=== PATIENT | female | born 1995 | race American Indian/Alaskan Native ===

== ENCOUNTER 2016-06-29 17:31 | Emergency (ER) | payer MEDICAID ==
[2016-06-29 17:59] VITALS: BP 119/72; PULSE 82; RESP 20; TEMP 98.2; O2SAT 100
--- NOTE | 2016-06-29 18:24 | C.PDOC ---
History Of Present Illness 21 y/o female presents to ED with complaint of missing her menstrual period for 5 months. Patient notes she has taken multiple tests at home which were negative. Patient requests test. Denies any pain or symptoms of . Denies abdominal pain, nausea, vomiting, pelvic pain, vaginal bleeding, or other associated symptoms. Patient notes she has been unable to see her OB[facility] due to insurance issues. Time Seen by Provider: 06/29/16 18:05 Chief Complaint (Nursing): Female Genitourinary History Per: Patient History/Exam Limitations: no limitations Onset/Duration Of Symptoms: Days, Persistent Current Symptoms Are (Timing): Still Present Recent travel outside of the [place]: No Past Medical History Reviewed: Historical Data, Nursing Documentation, Vital Signs Vital Signs: Last Vital Signs Temp 98.2 F 06/29/16 17:53 Pulse 82 06/29/16 17:53 Resp 20 06/29/16 17:53 BP 119/72 06/29/16 17:53 Pulse Ox 100 06/29/16 18:34 - Medical History PMH: Asthma Comment Only: End Stage Renal Disease ("I HAD KIDNEY FAILURE LAST MONTH") Family History: States: Unknown Family Hx - Social History Hx Tobacco Use: Yes Hx Alcohol Use: No Hx Substance Use: No - Immunization History Hx Tetanus Toxoid Vaccination: No Hx Influenza Vaccination: No Hx Pneumococcal Vaccination: No Review Of Systems Except As Marked, All Systems Reviewed And Found Negative. Constitutional: Negative for: Fever, Chills Cardiovascular: Negative for: Chest Pain Respiratory: Negative for: Shortness of Breath Gastrointestinal: Negative for: Nausea, Vomiting, Abdominal Pain Genitourinary: Negative for: Dysuria, Hematuria, Vaginal Bleeding, Pelvic Pain Skin: Negative for: Rash Physical Exam - Physical Exam Appears: Non-toxic, No Acute Distress Skin: Normal Color, Warm, Dry Head: Atraumatic, Normacephalic Oral Mucosa: Moist Chest: Symmetrical Cardiovascular: Rhythm Regular Respiratory: Normal Breath Sounds, No Rales, No Rhonchi, No Wheezing Gastrointestinal/Abdominal: Soft, No Tenderness, No Distention, No Guarding, No Rebound Back: Normal Inspection, No CVA Tenderness Extremity: Normal ROM, Capillary Refill (< 2 sec. ) Neurological/Psych: Oriented x3, Normal Speech, Normal Cognition ED Course And Treatment O2 Sat by Pulse Oximetry: 100 Medical Decision Making Medical Decision Making: Patient with irregular menses for 5 months. test in ED was negative. Explain to patient negative results. Patient has no complaints at this time. Explain to patient she needs to follow up with primary doctor or environmental studies program director for further evaluation such as thyroid tests and other analysis. Disposition - Disposition Referrals: [facility] [Outside] [facility] [Outside] Disposition: HOME/ ROUTINE Disposition Time: 18:24 Condition: STABLE Additional Instructions: Please follow up with your environmental studies program director or clinic for further evaluation Instructions: Amenorrhea (GEN) - Clinical Impression Clinical Impression: examination or test, negative result, Irregular menstrual cycle - PA / IT TECHNICIAN / Resident Statement MD/DO has reviewed & agrees with the documentation as recorded. - Scribe Statement The provider has reviewed the documentation as recorded by the Saskiaibe Roberto Carlos Lopes Provider Scribe Attestation: All medical record entries made by the Scribe were at my direction and personally dictated by me. I have reviewed the chart and agree that the record accurately reflects my personal performance of the history, physical exam, medical decision making, and the department course for this patient. I have also personally directed, reviewed, and agree with the discharge instructions and disposition.
== END 2016-06-29 18:38 | disposition home or self-care (01) ==
LOC: C.ER 17:31
DX: N92.6 Irregular menstruation, unspecified (principal); Z32.02 Encounter for pregnancy test, result negative

== ENCOUNTER 2016-12-27 04:54 | Emergency (ER) | payer MEDICAID, OTHER ==
[2016-12-27 05:05] VITALS: O2SAT 98
--- NOTE | 2016-12-27 05:16 | C.PDOC ---
History Of Present Illness Patient presents to the ER with a complaint of abdominal pain for the past hour and a half that woke her up. Patient states she took ibuprofen that worsened the pain. Denies fever, chills, nausea, or vomiting. LMP was 11/21. Time Seen by Provider: 12/27/16 05:16 Chief Complaint (Nursing): Abdominal Pain History Per: Patient History/Exam Limitations: no limitations Onset/Duration Of Symptoms: Hrs Current Symptoms Are (Timing): Still Present Location Of Pain/Discomfort: Diffuse Radiation Of Pain To:: None Quality Of Discomfort: Unable To Describe Associated Symptoms: denies: Fever, Chills, Nausea, Vomiting Exacerbating Factors: None Alleviating Factors: None Recent travel outside of the [place]: No Abnormal Vaginal Bleeding: No Last Menstral Period: 11/21/16 Past Medical History Reviewed: Historical Data, Nursing Documentation, Vital Signs Vital Signs: Last Vital Signs Temp 97.6 F 12/27/16 05:01 Pulse 78 12/27/16 05:01 Resp 20 12/27/16 05:01 BP 114/76 12/27/16 05:01 Pulse Ox 98 12/27/16 05:40 - Medical History PMH: Asthma Comment Only: End Stage Renal Disease ("I HAD KIDNEY FAILURE LAST MONTH") Surgical History: No Surg Hx Family History: States: Unknown Family Hx - Social History Hx Tobacco Use: Yes Hx Alcohol Use: No Hx Substance Use: No - Immunization History Hx Tetanus Toxoid Vaccination: No Hx Influenza Vaccination: No Hx Pneumococcal Vaccination: No Review Of Systems Constitutional: Negative for: Fever, Chills Gastrointestinal: Positive for: Abdominal Pain. Negative for: Nausea, Vomiting Physical Exam - Physical Exam Appears: Non-toxic Skin: Warm, Dry Head: Normacephalic Oral Mucosa: Moist Chest: Symmetrical Cardiovascular: Rhythm Regular Respiratory: No Rales, No Rhonchi, No Wheezing Gastrointestinal/Abdominal: Soft, Tenderness (Diffuse), No Guarding, No Rebound Neurological/Psych: Oriented x3 ED Course And Treatment - Laboratory Results Result Diagrams: 12/27/16 05:44 12/27/16 05:44 O2 Sat by Pulse Oximetry: 98 (Room air) Pulse Ox Interpretation: Normal Progress Note: Blood work and urinalysis ordered. Pepcid, zofran, and IV fluids administered. Disposition Counseled Patient/Family Regarding: Studies Performed, Diagnosis - Disposition Disposition Time: 05:16 Condition: FAIR Forms: [facility] (Romanian) - Clinical Impression Clinical Impression: Abdominal pain - Scribe Statement The provider has reviewed the documentation as recorded by the Scribe Carlitos Schroeder All medical record entries made by the Scribe were at my direction and personally dictated by me. I have reviewed the chart and agree that the record accurately reflects my personal performance of the history, physical exam, medical decision making, and the department course for this patient. I have also personally directed, reviewed, and agree with the discharge instructions and disposition. Physician Patient Turnover Patient Signed Over To: Jesenia Rodriguez Handoff Comments: pending ct results and dispostion
[2016-12-27] MEDS ORDERED: Sodium Chloride 0.9% 1,000 ML IV ONE (05:19)
[2016-12-27 05:40] LABS: RBC URINE 12 /hpf (0-3); URINE BILIRUBIN NEGATIVE (NEGATIVE); URINE BLOOD 2+ (NEGATIVE); URINE COLOR Yellow (YELLOW); URINE GLUCOSE (UA) NORMAL (Normal); URINE KETONE NEGATIVE (NEGATIVE); URINE LEUKOCYTE ESTERASE NEG Leu/uL (Negative); URINE PROTEIN NEGATIVE (NEGATIVE); URINE UROBILINOGEN NORMAL mg/dL (0.2-1.0); WBC URINE 2 /hpf (0-5)
[2016-12-27 05:47] LABS: BASO % 0.3 % (0.0-2.0); EOS # 0.1 K/uL (0.0-0.7); EOS % 0.8 % (0.0-4.0); HEMATOCRIT 41.9 % (34.0-47.0); LYMPH % 13.1 % (20.0-40.0); MEAN CELL VOLUME 94.5 fL (81.0-99.0); MEAN CORPUSCULAR HEMOGLOBIN 32.1 pg (27.0-31.0); MEAN CORPUSCULAR HGB CONC 33.9 g/dL (33.0-37.0); MEAN PLATELET VOLUME 8.9 fL (7.2-11.7); MONO # 0.7 K/uL (0.0-0.8); MONO % 4.2 % (0.0-10.0); RED CELL DISTRIBUTION WIDTH 12.9 % (11.5-14.5); WHITE BLOOD COUNT 15.5 K/uL (4.8-10.8)
[2016-12-27 05:55] LABS: CHLORIDE 102 mmol/L (98-107)
[2016-12-27 05:56] LABS: POTASSIUM 3.8 mmol/L (3.6-5.2); SODIUM 139 mmol/L (132-148)
[2016-12-27 05:58] LABS: ALB/GLOB RATIO 1.2 (1.0-2.1); ALKALINE PHOSPHATASE 109 U/L (38-126); AST/SGOT 22 U/L (14-36); BILIRUBIN,TOTAL 0.4 mg/dL (0.2-1.3); BLOOD UREA NITROGEN 16 mg/dL (7-17); CARBON DIOXIDE 23 mmol/L (22-30); GFR AFRICAN-AMERICAN > 60; TOTAL PROTEIN 7.5 g/dL (6.3-8.3)
[2016-12-27 05:59] LABS: ALT/SGPT 49 U/L (9-52); CALCIUM 9.6 mg/dl (8.6-10.4); GLUCOSE,RANDOM 104 mg/dL (65-105)
[2016-12-27] MEDS ORDERED: Piperacillin/Tazobact 3.375 gm 100 ML IVPB STA (06:32)
[2016-12-27] MEDS ORDERED: Piperacillin/Tazobact 3.375 gm 100 ML IVPB ONE (06:38)
[2016-12-27] MEDS ORDERED: Iodixanol 320 MG/ML 100 ML BOTTLE IV ONE (08:02)
--- NOTE | 2016-12-27 08:47 | CT ---
PROCEDURE: CT Abdomen and Pelvis with contrast HISTORY: rlq abdominal pain, leukocytosis COMPARISON: None. TECHNIQUE: Contrast dose: 100 mL Visipaque 320 Radiation dose: Total exam DLP = 1121.88 mGy-cm. This CT exam was performed using one or more of the following dose reduction techniques: Automated exposure control, adjustment of the mA and/or kV according to patient size, and/or use of iterative reconstruction technique. FINDINGS: LOWER THORAX: Unremarkable. LIVER: Normal size, contour and attenuation. No mass. No biliary dilatation. GALLBLADDER AND BILE DUCTS: Unremarkable. PANCREAS: Unremarkable. No gross lesion or ductal dilatation. SPLEEN: Unremarkable. ADRENALS: Unremarkable. No mass. KIDNEYS AND URETERS: Unremarkable. No hydronephrosis. No solid mass. VASCULATURE: Unremarkable. No aortic aneurysm. BOWEL: Unremarkable. No obstruction. No gross mural thickening. APPENDIX: Normal appendix. PERITONEUM: Unremarkable. No free fluid. No free air. LYMPH NODES: Unremarkable. No enlarged lymph nodes. BLADDER: Unremarkable. REPRODUCTIVE: Normal uterus BONES: Status post ORIF right acetabulum. Right hip osteoarthritis. OTHER FINDINGS: None. IMPRESSION: No evidence of appendicitis. No acute intra-abdominal process. Right hip osteoarthritis status post ORIF right acetabulum.
[2016-12-27] MEDS ORDERED: cefTRIAXone (Rocephin) 250 mg Inj IM STA (11:25)
[2016-12-27 12:31] VITALS: BP 129/88; PULSE 88; RESP 18; TEMP 97.2
== END 2016-12-27 12:56 | disposition home or self-care (01) ==
LOC: C.ER 04:54
DX: R10.9 Unspecified abdominal pain (principal)
CPT/HCPCS: 74177; 80053; 81001; 83690; 84703; 85025; 87491; 87591; 96372; 96374; 96375; 99285; J0696; J1885; J2405; J2543; J7040; Q9967

== ENCOUNTER 2017-01-18 15:01 | Emergency (ER) | payer OTHER ==
[2017-01-18 15:30] VITALS: BP 117/94; PULSE 81; TEMP 98; O2SAT 97
[2017-01-18 17:07] VITALS: RESP 20
--- NOTE | 2017-01-18 20:54 | C.PDOC ---
History Of Present Illness 21 year old female presents to the ED with complaints of chronic right hip pain for approximately one year. Patient has a history of ORIF of right acetabulum and has been having chronic pain since then.She notes she has not seen her orthopedist doctor for several months. Patient denies recent trauma, falls, weakness, or numbness. Chief Complaint (Nursing): Hip Pain History Per: Patient History/Exam Limitations: no limitations Onset/Duration Of Symptoms: Persistent (1 year ) Current Symptoms Are (Timing): Still Present Recent travel outside of the [place]: No Past Medical History Reviewed: Historical Data, Nursing Documentation, Vital Signs Vital Signs: Last Vital Signs Temp 98 F 01/18/17 15:25 Pulse 81 01/18/17 15:25 Resp 20 01/18/17 16:24 BP 117/94 H 01/18/17 15:25 Pulse Ox 97 01/18/17 21:02 - Medical History PMH: Asthma Comment Only: End Stage Renal Disease ("I HAD KIDNEY FAILURE LAST MONTH") Family History: States: Unknown Family Hx - Social History Hx Tobacco Use: Yes Hx Alcohol Use: No Hx Substance Use: No - Immunization History Hx Tetanus Toxoid Vaccination: No Hx Influenza Vaccination: No Hx Pneumococcal Vaccination: No Review Of Systems Musculoskeletal: Positive for: Other (chronic right hip pain) Neurological: Negative for: Weakness, Numbness Physical Exam - Physical Exam Appears: Non-toxic, No Acute Distress Skin: Warm, Dry Head: Atraumatic, Normacephalic Cardiovascular: Rhythm Regular, No Murmur Respiratory: No Rales, No Rhonchi, No Wheezing, Other (clear to auscultation bilaterally ) Extremity: Normal ROM, No Tenderness, Capillary Refill (good capillary refill, less than two seconds ), No Deformity, No Swelling Pulses: Left Dorsalis Pedis: Normal, Right Dorsalis Pedis: Normal Neurological/Psych: Oriented x3 Gait: Steady ED Course And Treatment O2 Sat by Pulse Oximetry: 97 (RA) Progress Note: Patient was given Motrin. Disposition - Disposition Referrals: [facility]iss[facility] Goode, [Non-Staff] - Disposition: HOME/ ROUTINE Disposition Time: 17:00 Condition: GOOD Additional Instructions: Thank you for letting us take care of you today. Your provider was Dr. Subramanian. You were treated for chronic hip pain. The emergency medical care you received today was directed at your acute symptoms. If you were prescribed any medication, please fill it and take as directed. It may take several days for your symptoms to resolve. Return to the Emergency Department if your symptoms worsen, do not improve, or if you have any other problems. Please contact your doctor or call one of the physicians/clinics you have been referred to that are listed on the Patient Visit Information form that is included in your discharge packet. Bring any paperwork you were given at discharge with you along with any medications you are taking to your follow up visit. Our treatment cannot replace ongoing medical care by a primary care provider (PCP) outside of the emergency department. Thank you for allowing the [email or web address] team to be part of your care today. Take presciption medication as directed. Follow up with your orthopedic doctor in next 2-3 days for re-evaluation and further management. Prescriptions: Cyclobenzaprine [Cyclobenzaprine HCl] 10 mg PO Q8 PRN #20 tab PRN Reason: Muscle Spasm Ibuprofen [Motrin] 600 mg PO Q6 PRN #20 tab PRN Reason: Pain, Moderate (4-7) Instructions: Hip Pain (ED) Forms: [facility] (Martiniquais) - Clinical Impression Clinical Impression: Hip pain - Scribe Statement The provider has reviewed the documentation as recorded by the Scribe Padmini Bueno All medical record entries made by the Scribe were at my direction and personally dictated by me. I have reviewed the chart and agree that the record accurately reflects my personal performance of the history, physical exam, medical decision making, and the department course for this patient. I have also personally directed, reviewed, and agree with the discharge instructions and disposition.
== END 2017-01-18 16:24 | disposition home or self-care (01) ==
LOC: C.ER 15:01
DX: M25.551 Pain in right hip (principal)

== ENCOUNTER 2017-02-04 10:31 | Emergency (ER) | payer OTHER ==
[2017-02-04 10:44] VITALS: TEMP 97.6; O2SAT 97
--- NOTE | 2017-02-04 11:43 | C.PDOC ---
History Of Present Illness 21 y/o female c/o abdominal cramping associated with her menstrual cycle for the past few days. Patient reports nausea, but no vomiting. Denies fever or chills. No vaginal discharge or urinary symptoms. Time Seen by Provider: 02/04/17 10:42 Chief Complaint (Nursing): Abdominal Pain History Per: Patient History/Exam Limitations: no limitations Onset/Duration Of Symptoms: Days Current Symptoms Are (Timing): Still Present Severity: Mild Location Of Pain/Discomfort: Diffuse Quality Of Discomfort: Cramping Associated Symptoms: Nausea. denies: Fever, Chills, Vomiting, Urinary Symptoms Recent travel outside of the [place]: No Additional History Per: Patient Past Medical History Reviewed: Historical Data, Nursing Documentation, Vital Signs Vital Signs: Last Vital Signs Temp 97.6 F 02/04/17 10:41 Pulse 71 02/04/17 12:15 Resp 18 02/04/17 12:15 BP 124/71 02/04/17 12:15 Pulse Ox 97 02/04/17 12:42 - Medical History PMH: Asthma Comment Only: End Stage Renal Disease ("I HAD KIDNEY FAILURE LAST MONTH") Family History: States: Unknown Family Hx - Social History Hx Tobacco Use: Yes Hx Alcohol Use: No Hx Substance Use: No - Immunization History Hx Tetanus Toxoid Vaccination: No Hx Influenza Vaccination: No Hx Pneumococcal Vaccination: No Review Of Systems Except As Marked, All Systems Reviewed And Found Negative. Constitutional: Negative for: Fever, Chills Gastrointestinal: Positive for: Nausea, Abdominal Pain. Negative for: Vomiting Genitourinary: Positive for: Vaginal Bleeding. Negative for: Dysuria, Hematuria , Vaginal Discharge Physical Exam - Physical Exam Appears: Non-toxic, No Acute Distress Skin: Warm, Dry Head: Atraumatic, Normacephalic Oral Mucosa: Moist Chest: Symmetrical Cardiovascular: Rhythm Regular, No Murmur Respiratory: Normal Breath Sounds, No Rales, No Rhonchi, No Wheezing Gastrointestinal/Abdominal: Soft, No Tenderness (No reproducible tenderness) Back: No CVA Tenderness Neurological/Psych: Oriented x3 ED Course And Treatment O2 Sat by Pulse Oximetry: 97 (RA) Pulse Ox Interpretation: Normal Medical Decision Making Medical Decision Making: Plans: * Motrin * Zofran * Tramadol * UA DDx: Menstrual cramps Patient states she feels better now. Patient is afebrile and is in no acute distress. Patient was advised to follow up with her PMD/OB for further evaluation and to return if symptoms worsens. Disposition Counseled Patient/Family Regarding: Studies Performed, Diagnosis, Need For Followup, Rx Given - Disposition Referrals: [facility] [Outside] Disposition: HOME/ ROUTINE Disposition Time: 12:15 Condition: IMPROVED Additional Instructions: follow up with your doctor in 2 days call to make an appointment take medications as needed for pain return to hospital if symptoms worsens or progress Prescriptions: Naproxen [Naprosyn] 500 mg PO BID PRN #16 tab PRN Reason: Pain, Moderate (4-7) Ondansetron ODT [Zofran ODT] 4 mg PO TID PRN #12 odt PRN Reason: Nausea/Vomiting traMADol [Ultram] 50 mg PO TID PRN #8 tab PRN Reason: Pain, Moderate (4-7) Instructions: Dysmenorrhea (ED) Forms: [facility] (Japanese), General Discharge Instructions - Clinical Impression Clinical Impression: Abdominal pain, Menstrual cramps - Scribe Statement The provider has reviewed the documentation as recorded by the Scribe Chris varghese All medical record entries made by the Scribe were at my direction and personally dictated by me. I have reviewed the chart and agree that the record accurately reflects my personal performance of the history, physical exam, medical decision making, and the department course for this patient. I have also personally directed, reviewed, and agree with the discharge instructions and disposition.
[2017-02-04 12:09] LABS: RBC URINE 1248 /hpf (0-3); URINE BILIRUBIN NEGATIVE (NEGATIVE); URINE BLOOD 3+ (NEGATIVE); URINE COLOR Yellow (YELLOW); URINE GLUCOSE (UA) NORMAL (Normal); URINE KETONE NEGATIVE (NEGATIVE); URINE LEUKOCYTE ESTERASE NEG Leu/uL (Negative); URINE PROTEIN 1+ mg/dL (NEGATIVE); URINE UROBILINOGEN NORMAL mg/dL (0.2-1.0); WBC URINE 5 /hpf (0-5)
[2017-02-04 12:58] VITALS: BP 124/71; PULSE 71; RESP 18
== END 2017-02-04 12:35 | disposition home or self-care (01) ==
LOC: C.ER 10:31
DX: N94.6 Dysmenorrhea, unspecified (principal)

== ENCOUNTER 2017-02-24 09:20 | Emergency (ER) | payer OTHER ==
[2017-02-24 09:31] VITALS: BMI 37.2
[2017-02-24 09:33] VITALS: RESP 18
--- NOTE | 2017-02-24 10:25 | C.PDOC ---
Time Seen by Provider: 02/24/17 10:17 Chief Complaint (Nursing): Shortness Of Breath Past Medical History Vital Signs: Last Vital Signs Temp 98.6 F 02/24/17 09:32 Pulse 69 02/24/17 09:32 Resp 18 02/24/17 09:32 BP 111/78 02/24/17 09:32 Pulse Ox 99 02/24/17 09:32 - Medical History PMH: Asthma Comment Only: End Stage Renal Disease ("I HAD KIDNEY FAILURE LAST MONTH") Family History: States: Unknown Family Hx - Social History Hx Tobacco Use: Yes Hx Alcohol Use: No Hx Substance Use: No - Immunization History Hx Tetanus Toxoid Vaccination: No Hx Influenza Vaccination: No Hx Pneumococcal Vaccination: No ED Course And Treatment O2 Sat by Pulse Oximetry: 99 Disposition - Disposition
[2017-02-24] MEDS ORDERED: Albuterol 0.083% Inhal Sol (2.5 mg/3 mL) UD INH STA (10:27)
--- NOTE | 2017-02-24 10:28 | C.PDOC ---
History Of Present Illness 21 year old female presents to the ED c/o bronchitis and asthma exacerbation for the past 2 days, she also reports trying her MDI with no relief IV THERAPY NURSE. Patient reports being a smoker and that she gets current symptoms "during this time of year". Patient denies fever, chills, CP, abdominal pain. BRONCHITIS ASTHMA EXAC X 2 DAYS. NO FEVER. NO RELIEF W MDI IV THERAPY NURSE. +SMOKER. PS GETS CURRENT SX "DURING THIS TIME OF YEAR" EXAM NARD HEENT NEG LUNGS OCC EXP WHEEZE NO TACHYPNEA, RETRACT RALES RHONCHI REMAINDER NEG Time Seen by Provider: 02/24/17 10:17 Chief Complaint (Nursing): Shortness Of Breath History Per: Patient History/Exam Limitations: no limitations Onset/Duration Of Symptoms: Days Current Symptoms Are (Timing): Still Present Associated Symptoms: denies: Fever Recent travel outside of the [place]: No Additional History Per: Patient Past Medical History Reviewed: Historical Data, Nursing Documentation, Vital Signs Vital Signs: Last Vital Signs Temp 98.6 F 02/24/17 09:32 Pulse 69 02/24/17 09:32 Resp 18 02/24/17 10:45 BP 111/78 02/24/17 09:32 Pulse Ox 99 02/24/17 11:01 - Medical History PMH: Asthma Comment Only: End Stage Renal Disease ("I HAD KIDNEY FAILURE LAST MONTH") Surgical History: No Surg Hx Family History: States: Unknown Family Hx - Social History Hx Tobacco Use: Yes Hx Alcohol Use: No Hx Substance Use: No - Immunization History Hx Tetanus Toxoid Vaccination: No Hx Influenza Vaccination: No Hx Pneumococcal Vaccination: No Review Of Systems Constitutional: Negative for: Fever, Chills Cardiovascular: Negative for: Chest Pain Respiratory: Negative for: Cough Gastrointestinal: Negative for: Nausea, Vomiting, Abdominal Pain Musculoskeletal: Negative for: Neck Pain Skin: Negative for: Rash Physical Exam - Physical Exam Appears: Non-toxic, No Acute Distress Skin: Normal Color, Warm, Dry Head: Atraumatic, Normacephalic Eye(s): bilateral: Normal Inspection, PERRL, EOMI Ear(s): Bilateral: Normal Nose: No Discharge, No Deformity Oral Mucosa: Moist, No Drooling Throat: Normal, No Erythema, No Exudate Neck: Normal ROM, Supple Chest: Symmetrical Cardiovascular: Rhythm Regular, No Murmur Respiratory: No Rales, No Rhonchi, Wheezing (Occasional expiratory), No Other ( tachypnea) Gastrointestinal/Abdominal: Soft, No Tenderness, No Guarding, No Rebound Back: No CVA Tenderness Extremity: Normal ROM, No Deformity, No Swelling Neurological/Psych: Oriented x3, Normal Speech, Normal Cognition Gait: Steady ED Course And Treatment ECG: Interpreted By Me ECG Rhythm: Sinus Rhythm ECG Interpretation: Normal Rate From EC O2 Sat by Pulse Oximetry: 99 (On RA) Pulse Ox Interpretation: Normal - Radiology CXR: Interpreted by Me CXR Interpretation: Yes: No Acute Disease Medical Decision Making Medical Decision Making: Plan: * EKG , CXR ordered * Albuterol 2.5 INH given * Motrin 600 mg PO given * Tessalon perles 200 mg PO given * Prednisone 60 mg PO given * Nebulizer treatment given Disposition Counseled Patient/Family Regarding: Studies Performed, Diagnosis, Need For Followup, Rx Given - Disposition Referrals: YOUR,PMD [Other] Disposition: HOME/ ROUTINE Disposition Time: 11:10 Condition: IMPROVED Prescriptions: Albuterol HFA [Ventolin HFA 90 mcg/actuation (8 g)] 1 puff IH Q4 #1 inhaler Azithromycin 250 mg PO DAILY #6 tab Benzonatate [Tessalon Perles] 200 mg PO TID PRN #15 sgl PRN Reason: Cough predniSONE [Prednisone] 60 mg PO DAILY #12 tab Instructions: Acute Bronchitis (ED) Forms: [facility] (Sinhala), Work Excuse Print Language: JAPANESE - Clinical Impression Clinical Impression: Bronchitis - Scribe Statement The provider has reviewed the documentation as recorded by the Scribe Doni Downs All medical record entries made by the Scribe were at my direction and personally dictated by me. I have reviewed the chart and agree that the record accurately reflects my personal performance of the history, physical exam, medical decision making, and the department course for this patient. I have also personally directed, reviewed, and agree with the discharge instructions and disposition.
[2017-02-24] MEDS ORDERED: Albuterol-Ipratrop 3 mg / 0.5 (3 ml) UD ONE (10:48)
--- NOTE | 2017-02-24 10:48 | RAD ---
HISTORY: COUGH COMPARISON: No prior. TECHNIQUE: Chest PA and lateral FINDINGS: LUNGS: No active pulmonary disease. PLEURA: No significant pleural effusion identified. No pneumothorax apparent. CARDIOVASCULAR: Normal. OSSEOUS STRUCTURES: No significant abnormalities. VISUALIZED UPPER ABDOMEN: Normal. OTHER FINDINGS: None. IMPRESSION: No active disease.
[2017-02-24 11:30] VITALS: BP 124/72; PULSE 75; TEMP 97.5; O2SAT 98
--- NOTE | 2017-02-26 10:35 | CARD ---
APPROVED REPORT EKG Measurement Heart [id number] CA [id number] <Conclusion> Normal sinus rhythm Normal ECG
== END 2017-02-24 11:33 | disposition home or self-care (01) ==
LOC: C.ER 09:20
DX: J40 Bronchitis, not specified as acute or chronic (principal); Z72.0 Tobacco use

== ENCOUNTER 2017-03-22 15:33 | Emergency (ER) | payer OTHER ==
[2017-03-22 15:34] VITALS: BMI 37.2
--- NOTE | 2017-03-22 16:10 | C.PDOC ---
History Of Present Illness R UE INJURY ONSET YEST. PS TRIED TO PREVENT FALL, HELD ONTO SOMETHING TO PREVENT AND FELT PULLING ON BACK OF SHOULDER AND R WRIST. DENIES DIRECT INJURY TO AREA. CO PAIN R SHOULDER/WRIST, WORST W MOVEMENT. 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 DENIES HO CHRONIC RUE PAIN OR PRIOR INJURY EXAM MOD DIST NONTOXIC EXT R SHOULDER LIMITED FLEX >90 DEG. FULL INT ROTATION. LIMITED ADDUCT >90 DEG. NO DEFORM. R WRIST LIMITED ROM DUE TO PAIN. GEN PAIN. NO DEFORM SKIN INTACT NEURO INTACT REMIANDE RNEG Time Seen by Provider: 03/22/17 16:04 Chief Complaint (Nursing): Upper Extremity Problem/Injury History Per: Patient History/Exam Limitations: no limitations Onset/Duration Of Symptoms: Days (1) Past Medical History Reviewed: Historical Data, Nursing Documentation, Vital Signs Vital Signs: Last Vital Signs Temp 98 F 03/22/17 15:40 Pulse 87 03/22/17 15:40 Resp 16 03/22/17 15:40 BP 162/96 H 03/22/17 15:40 Pulse Ox 96 03/22/17 16:38 - Medical History PMH: Asthma Comment Only: End Stage Renal Disease ("I HAD KIDNEY FAILURE LAST MONTH") Family History: States: No Known Family Hx - Social History Hx Tobacco Use: Yes Hx Alcohol Use: No Hx Substance Use: No - Immunization History Hx Tetanus Toxoid Vaccination: No Hx Influenza Vaccination: No Hx Pneumococcal Vaccination: No Review Of Systems Except As Marked, All Systems Reviewed And Found Negative. Cardiovascular: Negative for: Chest Pain Musculoskeletal: Positive for: Shoulder Pain (right), Back Pain (right upper). Negative for: Hand Pain Neurological: Negative for: Weakness, Numbness Physical Exam - Physical Exam Appears: Non-toxic, In Acute Distress (moderate) Skin: Warm, Dry, No Rash Head: Atraumatic, Normacephalic Oral Mucosa: Moist Respiratory: Normal Breath Sounds Extremity: Capillary Refill (<2 secs), No Deformity, Other (Right Shoulder - Limited flex >90 degree. Full internal rotation. Limited adduct >90 degree. Right Wrist - Limited ROM due to pain. General pain) Neurological/Psych: Oriented x3, Normal Speech, Normal Motor ED Course And Treatment O2 Sat by Pulse Oximetry: 96 (RA) Pulse Ox Interpretation: Normal - Other Rad X-Ray - Right Shoulder X-Ray: Interpreted by Me, Viewed By Me Interpretation: NEG X-Ray - Right Wrist X-Ray: Interpreted by Me, Viewed By Me Interpretation: NEG Medical Decision Making Medical Decision Making: PLAN: * X-Ray - Right Shoulder, Right Wrist * Percocet PO * Tylenol PO * Toradol IM Disposition Counseled Patient/Family Regarding: Studies Performed, Diagnosis, Need For Followup, Rx Given - Disposition Referrals: Sima Van MD [Staff Provider] - YOUR,PMD [Other] Disposition: HOME/ ROUTINE Disposition Time: 16:39 Condition: IMPROVED Prescriptions: Acetaminophen/Codeine [Tylenol/Codeine 300 MG/30 MG] 1 tab PO Q4H #12 tab Cyclobenzaprine [Flexeril] 10 mg PO TID #15 tab Ibuprofen [Motrin] 600 mg PO Q6 #30 tab Instructions: Rotator Cuff Injury (ED) Forms: [facility] (Upper Sorbian), Work Excuse - Clinical Impression Clinical Impression: Shoulder strain, Wrist strain - Scribe Statement The provider has reviewed the documentation as recorded by the Scribe Evelin Monge Provider Attestation: All medical record entries made by the Scribe were at my direction and personally dictated by me. I have reviewed the chart and agree that the record accurately reflects my personal performance of the history, physical exam, medical decision making, and the department course for this patient. I have also personally directed, reviewed, and agree with the discharge instructions and disposition. Orthopedic Care Application Of:: Sling
[2017-03-22] MEDS ORDERED: Oxycodone/Acetaminophen 5/325 mg Tab PO STA (16:14)
--- NOTE | 2017-03-22 16:37 | RAD ---
PROCEDURE: Radiographs of the Right Shoulder HISTORY: TRAUMA COMPARISON: None. FINDINGS: BONES: No acute displaced fracture. The distal clavicle and underlying ribs appear intact. JOINTS: No acute dislocation. SOFT TISSUES: Soft tissues appear unremarkable. No evidence of radiopaque foreign body. IMPRESSION: No acute displaced fracture or dislocation evident. If symptoms persist or if there is continued clinical concern, x-ray follow-up in 7-10 days should be considered.
--- NOTE | 2017-03-22 16:44 | RAD ---
PROCEDURE: Right Wrist Radiographs. HISTORY: TRAUMA COMPARISON: None available. FINDINGS: BONES: No acute displaced fracture. JOINTS: No dislocation. SOFT TISSUES: Unremarkable. No evidence of radiopaque foreign body OTHER FINDINGS: None. IMPRESSION: No acute displaced fracture, dislocation, or significant joint effusion identified. If symptoms persist, or if there is continued clinical concern, x-ray follow-up in 7-10 days should be considered.
[2017-03-22] MEDS ORDERED: Oxycodone/Acetaminophen 5/325 mg Tab ONE (17:07)
[2017-03-22 17:13] VITALS: BP 155/109; PULSE 77; RESP 20; TEMP 98.2; O2SAT 100
== END 2017-03-22 17:49 | disposition home or self-care (01) ==
LOC: C.ER 15:33
DX: S46.911A Strain of unspecified muscle, fascia and tendon at shoulder and upper arm level, right arm, initial encounter (principal); S66.911A Strain of unspecified muscle, fascia and tendon at wrist and hand level, right hand, initial encounter; X58.XXXA Exposure to other specified factors, initial encounter
CPT/HCPCS: 73030; 73110; 96372; 99283; J1885

== ENCOUNTER 2017-08-25 19:10 | Emergency (ER) | payer OTHER ==
[2017-08-25 19:10] VITALS: BMI 37.2
[2017-08-25 19:39] VITALS: BP 106/69; PULSE 84; TEMP 99; O2SAT 98
[2017-08-25 20:03] LABS: SQUAMOUS EPITHIAL 4 /hpf (0-5); URINE BACTERIA RARE (<OCC); URINE BILIRUBIN NEGATIVE (NEGATIVE); URINE BLOOD NEGATIVE (NEGATIVE); URINE CLARITY Clear (Clear); URINE COLOR Yellow (YELLOW); URINE GLUCOSE (UA) NORMAL (Normal); URINE LEUKOCYTE ESTERASE NEG Leu/uL (Negative); URINE PROTEIN NEGATIVE (NEGATIVE); URINE UROBILINOGEN NORMAL mg/dL (0.2-1.0)
[2017-08-25 20:04] LABS: HCG,QUALITATIVE URINE NEGATIVE (NEGATIVE)
--- NOTE | 2017-08-25 20:26 | C.PDOC ---
History Of Present Illness Patient is a 22 y/o female who presents to the ED with a complaint of frothy vaginal discharge for the last 1 week. Patient admits to having unprotected sex with multiple partners. Patient has been seen in ED for multiple presentations of abdominal pain since September 2013. Denies any Hx of STDs, PIDs, or . Patient asking for imperant treatment for STDs. No other physical complaints at this time. Time Seen by Provider: 08/25/17 20:12 Chief Complaint (Nursing): Abdominal Pain History Per: Patient History/Exam Limitations: no limitations Onset/Duration Of Symptoms: Days (1 week) Current Symptoms Are (Timing): Still Present Associated Symptoms: denies: Fever, Chills Recent travel outside of the [place]: No Past Medical History Reviewed: Historical Data, Nursing Documentation, Vital Signs Vital Signs: Last Vital Signs Temp 99 F 08/25/17 19:36 Pulse 84 08/25/17 19:36 Resp 20 08/25/17 21:26 BP 106/69 08/25/17 19:36 Pulse Ox 98 08/25/17 23:56 - Medical History PMH: Asthma Comment Only: End Stage Renal Disease ("I HAD KIDNEY FAILURE LAST MONTH") Surgical History: No Surg Hx Family History: States: No Known Family Hx - Social History Hx Tobacco Use: Yes Hx Alcohol Use: No Hx Substance Use: No - Immunization History Hx Tetanus Toxoid Vaccination: No Hx Influenza Vaccination: Yes Hx Pneumococcal Vaccination: No Review Of Systems Genitourinary: Positive for: Vaginal Discharge (frothy in nature ). Negative for: Dysuria, Frequency Physical Exam - Physical Exam Appears: Non-toxic, No Acute Distress Skin: Normal Color, Warm, Dry Head: Atraumatic, Normacephalic Oral Mucosa: Moist Chest: Symmetrical Cardiovascular: Rhythm Regular, No Murmur Respiratory: Normal Breath Sounds, No Rales, No Rhonchi, No Wheezing Gastrointestinal/Abdominal: Bowel Sounds (normactive), Soft, No Tenderness, No Guarding, No Hernia, Other (morbidly obese) Pelvic: Vaginal Discharge (scant, whitish, odorous), Other (chaperoned by ZULEIMA Magana) Neurological/Psych: Oriented x3, Normal Speech, Normal Cognition ED Course And Treatment O2 Sat by Pulse Oximetry: 98 Progress Note: Zithromax and rocephin administered. Chlamydia/GC ordered. Medical Decision Making Medical Decision Making: empiric tx for GC/Chlamydia opt f/u for other suspeted STD's Disposition Doctor Will See Patient In The: Office Counseled Patient/Family Regarding: Studies Performed, Diagnosis - Disposition Referrals: Wilfredo Villela MD [Primary Care Provider] - Disposition: HOME/ ROUTINE Disposition Time: 20:34 Condition: GOOD Additional Instructions: you were empirically treated for GC/Chlamydia with Rocephin 250 mg IM and Azithromycin 1000 mg by mouth Please follow-up with the [facility] for futher STD testing: Syphillis , HIV, Hepatitis No sexual relations for 1 week Have your sexual partner(s) tested for STD's. Instructions: Vaginal Discharge in Adults Forms: [facility] (Thai) - Clinical Impression Clinical Impression: Vaginal discharge - Scribe Statement The provider has reviewed the documentation as recorded by the Scribe Chanda Nam All medical record entries made by the Scribe were at my direction and personally dictated by me. I have reviewed the chart and agree that the record accurately reflects my personal performance of the history, physical exam, medical decision making, and the department course for this patient. I have also personally directed, reviewed, and agree with the discharge instructions and disposition.
[2017-08-25] MEDS ORDERED: cefTRIAXone IV 1 gm in Dextros 50 ML IV ONE (20:30)
[2017-08-25] MEDS ORDERED: cefTRIAXone 1 gm in Water For Injection 2.1 ML IM ONE (20:41)
[2017-08-25 21:27] VITALS: RESP 20
== END 2017-08-25 21:26 | disposition home or self-care (01) ==
LOC: SUPCPDRO 19:10 → C.ER 19:10
DX: N89.8 Other specified noninflammatory disorders of vagina (principal); Z72.0 Tobacco use
CPT/HCPCS: 81001; 84703; 96372; 99284; J0696

== ENCOUNTER 2017-11-23 16:15 | Emergency (ER) | payer OTHER ==
[2017-11-23 16:16] VITALS: BMI 37.2
--- NOTE | 2017-11-23 16:51 | C.PDOC ---
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 She states the pain began while laying down. The patient denies any SOB, nausea or palpitations. She denies experiencing any trauma. The patient offers no other medical complaints at this time. Time Seen by Provider: 11/23/17 16:23 Chief Complaint (Nursing): Chest Pain History Per: Patient History/Exam Limitations: no limitations Onset/Duration Of Symptoms: Hrs Current Symptoms Are (Timing): Still Present Quality: "Pain" Associated Symptoms: denies: Nausea Recent travel outside of the [place]: No Past Medical History Reviewed: Historical Data, Nursing Documentation, Vital Signs Vital Signs: Last Vital Signs Temp 98.2 F 11/23/17 16:18 Pulse 69 11/23/17 16:18 Resp 18 11/23/17 16:18 BP 136/78 11/23/17 16:18 Pulse Ox 99 11/23/17 16:58 - Medical History PMH: Asthma Comment Only: End Stage Renal Disease ("I HAD KIDNEY FAILURE LAST MONTH") Other Surgeries: Right hip surgery Family History: States: Unknown Family Hx - Social History Hx Tobacco Use: Yes Hx Alcohol Use: No Hx Substance Use: No - Immunization History Hx Tetanus Toxoid Vaccination: No Hx Influenza Vaccination: Yes Hx Pneumococcal Vaccination: No Review Of Systems Except As Marked, All Systems Reviewed And Found Negative. Constitutional: Negative for: Fever Cardiovascular: Negative for: Chest Pain, Palpitations Respiratory: Negative for: Shortness of Breath Gastrointestinal: Negative for: Nausea Musculoskeletal: Positive for: Other (pain below the breast) Physical Exam - Physical Exam Appears: Well, Non-toxic, Toxic Skin: Normal Color, Warm, Dry Head: Atraumatic, Normacephalic Eye(s): bilateral: PERRL, EOMI Ear(s): Bilateral: Normal Oral Mucosa: Moist Neck: Normal ROM, Supple Chest: Symmetrical Cardiovascular: Rhythm Regular, No Murmur Respiratory: Normal Breath Sounds, No Rales, No Rhonchi, No Wheezing Gastrointestinal/Abdominal: Soft, No Tenderness, No Distention Neurological/Psych: Oriented x3, Normal Speech Gait: Steady ED Course And Treatment ECG Interpretation: Normal Interpretation Of ECG: Normal sinus rhythym. Vent rate 69 bpm. MT interval 144 ms. QRS 84 ms. QT 402 ms. QTc 430 ms O2 Sat by Pulse Oximetry: 99 (RA) Pulse Ox Interpretation: Normal Medical Decision Making Medical Decision Making: Impression: 22 y/o female with pain below the right sided rib Plan: -EKG -Motrin 600 mg PO Disposition - Disposition Referrals: Lisseth Goode, [Non-Staff] - Disposition: HOME/ ROUTINE Disposition Time: 16:40 Condition: GOOD Additional Instructions: ERIK HAMILTON, thank you for letting us take care of you today. Your provider was Sudeep Subramanian DO and you were treated for RIB PAIN. The emergency medical care you received today was directed at your acute symptoms. If you were prescribed any medication, please fill it and take as directed. It may take several days for your symptoms to resolve. Return to the Emergency Department if your symptoms worsen, do not improve, or if you have any other problems. Please contact your doctor or call one of the physicians/clinics you have been referred to that are listed on the Patient Visit Information form that is included in your discharge packet. Bring any paperwork you were given at discharge with you along with any medications you are taking to your follow up visit. Our treatment cannot replace ongoing medical care by a primary care provider outside of the emergency department. Thank you for allowing the [facility] team to be part of your care today. Follow up with your primary care doctor in 2-3 days for re-evaluation and further management. Prescriptions: Ibuprofen [Motrin] 600 mg PO Q6 PRN #20 tab PRN Reason: Pain, Moderate (4-7) Instructions: Costochondritis (DC) Forms: [employer] (Romansh) - Clinical Impression Clinical Impression: Costochondritis - PA / [employer] / Resident Statement MD/DO has reviewed & agrees with the documentation as recorded. - Scribe Statement The provider has reviewed the documentation as recorded by the Scribe (Cheryl Bolanos) Provider Attestation: All medical record entries made by the Scribe were at my direction and personally dictated by me. I have reviewed the chart and agree that the record accurately reflects my personal performance of the history, physical exam, medical decision making, and the department course for this patient. I have also personally directed, reviewed, and agree with the discharge instructions and disposition.
[2017-11-23 16:53] VITALS: BP 136/78; PULSE 69; RESP 18; TEMP 98.2; O2SAT 99
--- NOTE | 2017-11-24 20:11 | CARD ---
APPROVED REPORT Date of service: 11/23/2017 EKG Measurement Heart [id number] MS [id number] [id number] <Conclusion> Normal sinus rhythm Normal ECG
== END 2017-11-23 17:27 | disposition home or self-care (01) ==
LOC: C.ER 16:15
DX: M94.0 Chondrocostal junction syndrome [Tietze] (principal); N18.6 End stage renal disease; Z72.0 Tobacco use